=== PATIENT | female | born 1980 | race Hispanic/Latino ===

== ENCOUNTER 2020-05-28 06:41 | Day surgery (SDC) | payer MEDICAID ==
[2020-05-28] VITALS (8 sets, daily range): BP systolic 93–123; BP diastolic 54–72
[~2020-05-28] VITALS: Ht 157.5 cm; Wt 74.8 kg
[~2020-05-28 06:41] MED LIST: ACET1TAB25 PO; AMYL1CAP63 PO; BUSP10TA3 PO; FLUO40CA7 PO; HYDR-3421 PO; LACO50TA2 PO; METF-910 PO; PANT40TA54 PO; PROM12.513 PO; QUET25TA PO; SODIUM CHLORIDE 0.9% 1000ML 1,000 ML IV ONE
[2020-05-28] MEDS ORDERED: PROPOFOL 10 MG/ML 20ML VIAL IV ONE ×2 (07:24→08:16)
[2020-05-28] MEDS ORDERED: LIDOCAINE HCL-MPF 2% 5ML VIAL ONE (07:25)
== END 2020-05-28 09:25 | disposition home or self-care (01) ==
LOC: DAH 06:41 → ENDO 06:41
PROVIDERS: ATTEND Internal Medicine Gastroenterology
DX: K85.00 Idiopathic acute pancreatitis without necrosis or infection (principal); Z20.822 Contact with and (suspected) exposure to COVID-19; K21.9 Gastro-esophageal reflux disease without esophagitis; K83.8 Other specified diseases of biliary tract; K31.89 Other diseases of stomach and duodenum; F41.9 Anxiety disorder, unspecified; E11.9 Type 2 diabetes mellitus without complications; G40.909 Epilepsy, unspecified, not intractable, without status epilepticus; Z98.891 History of uterine scar from previous surgery; Z90.49 Acquired absence of other specified parts of digestive tract; Z88.8 Allergy status to other drugs, medicaments and biological substances; Z79.84 Long term (current) use of oral hypoglycemic drugs; Z79.899 Other long term (current) drug therapy; Z83.3 Family history of diabetes mellitus
CPT/HCPCS: 43259; 82948 ×2; A4215; A4221; A4222; A4223; A4606; A4620; A4663; C9803; J2704 ×2; J3490; J7030; U0003